=== PATIENT | female | born 1980 | race Caucasian/White ===

== ENCOUNTER → 2016-05-04 | Outpatient (REF) | payer OTHER | LOC: M SFHCLERA 17:42 | PROVIDERS: ATTEND Physician Assistant | DX: N30.01 Acute cystitis with hematuria (principal) ==

== ENCOUNTER → 2017-10-16 | Outpatient (REF) | payer OTHER | LOC: M SFHCLERA 13:56 | DX: R30.0 Dysuria (principal) ==